=== PATIENT | female | born 1985 | race Caucasian/White ===

== ENCOUNTER 2018-05-18 07:54 | Emergency (ER) | payer BC ==
[~2018-05-18] VITALS: Ht 172.7 cm; Wt 93.0 kg
[2018-05-18 07:59] VITALS: BP 121/70; PULSE 90; RESP 16; TEMP 98.4; O2SAT 96
[2018-05-18] MEDS ORDERED: BUSP15TA PO (08:15)
[2018-05-18] MEDS ORDERED: PROCHLORPERAZINE INJ 10 MG/2 ML VIAL IV PUSH ONE (08:30)
[2018-05-18] MEDS ORDERED: diphenhydrAMINE HCL 50 MG/ML VIAL IV PUSH ONE (08:30)
--- NOTE | 2018-05-18 08:50 | PD ---
HPI . Headache Chief Complaint: Headache Time Seen by Provider: 08:27 Travel History International Travel<30 days: No Contact w/Intl Traveler<30days: No Traveled to known affect area: No History of Present Illness HPI Patient presents complaining with headache and pain all over. Onset was yesterday. Associated symptoms include nausea and dizziness. Symptoms were unrelieved by a dose of ibuprofen yesterday. Her pain is rated 7/10. No modifying factors. She reports associated nasal congestion. Otherwise, her review of systems is negative except as previously mentioned. [facility] Past Medical History Anxiety: Yes Diminished Hearing: No Headaches: Yes Immunizations Current: Yes Influenza Vaccination: No ?: Not LMP: NOW Tubal Ligation: Yes Social History Alcohol Use: No Tobacco Use: No (FORMER) Substance Use: No Allergies-Medications (Allergen,Severity, Reaction): Coded Allergies: No Known Allergies (Unverified , 05/18/18) Reported Meds & Prescriptions Reported Meds & Active Scripts Active Reported Buspirone (Buspirone HCl) 15 Mg Tab 15 Mg PO BID PRN Review of Systems Except as stated in HPI: all other systems reviewed are Neg General / Constitutional: No: Fever, Chills Eyes: No: Drainage, Redness HENT: Positive: Headaches, Congestion, No: Sore Throat Respiratory: No: Cough, Shortness of Breath Gastrointestinal: Positive: Nausea, No: Diarrhea, Abdominal Pain Genitourinary: No: Urgency, Frequency, Dysuria Neurologic: Positive: Dizziness Physical Exam Narrative GENERAL: Awake and alert and in no acute distress. SKIN: warm/dry. HEAD: Normocephalic. Atraumatic. Palpation of her scalp "feels good." EYES: Pupils equal and round. Extraocular movements are intact. ENT: Mucous membranes pink and moist. NECK: Supple. Full range of motion without pain. No adenopathy. CARDIOVASCULAR: Regular rate and rhythm. Heart sounds are normal. RESPIRATORY: No accessory muscle use. Clear to auscultation. Breath sounds equal bilaterally. GASTROINTESTINAL: Abdomen soft. Nontender. Bowel sounds present. Nondistended. MUSCULOSKELETAL: No obvious deformities. Normal muscle tone. NEUROLOGICAL: Awake and alert. No obvious cranial nerve deficits. Motor grossly within normal limits. Normal speech. PSYCHIATRIC: Appropriate mood and affect; insight and judgment normal. Data Data Last Documented VS Vital Signs Date Time Temp Pulse Resp B/P (MAP) Pulse Ox O2 Delivery O2 Flow Rate FiO2 05/18/18 08:08 16 05/18/18 07:59 98.4 90 121/70 (87) 96 Orders Orders ^ Saline Lock (05/18/18 08:28) Diphenhydramine Inj (Benadryl Inj) (05/18/18 08:30) Prochlorperazine Inj (Compazine Inj) (05/18/18 08:30) Complete Blood Count With Diff (05/18/18 08:45) Basic Metabolic Panel (Bmp) (05/18/18 08:45) Lactic Acid (05/18/18 08:45) Labs Laboratory Tests Test 05/18/18 08:55 05/18/18 09:16 White Blood Count 5.9 TH/MM3 Red Blood Count 4.64 MIL/MM3 Hemoglobin 13.5 GM/DL Hematocrit 39.3 % Mean Corpuscular Volume 84.5 FL Mean Corpuscular Hemoglobin 29.0 PG Mean Corpuscular Hemoglobin Concent 34.3 % Red Cell Distribution Width 12.8 % Platelet Count 170 TH/MM3 Mean Platelet Volume 8.6 FL Neutrophils (%) (Auto) 86.6 % Lymphocytes (%) (Auto) 5.0 % Monocytes (%) (Auto) 5.1 % Eosinophils (%) (Auto) 2.6 % Basophils (%) (Auto) 0.7 % Neutrophils # (Auto) 5.1 TH/MM3 Lymphocytes # (Auto) 0.3 TH/MM3 Monocytes # (Auto) 0.3 TH/MM3 Eosinophils # (Auto) 0.2 TH/MM3 Basophils # (Auto) 0.0 TH/MM3 CBC Comment DIFF FINAL Differential Comment Blood Urea Nitrogen 10 MG/DL Creatinine 0.86 MG/DL Random Glucose 89 MG/DL Calcium Level 8.8 MG/DL Sodium Level 138 MEQ/L Potassium Level 3.8 MEQ/L Chloride Level 104 MEQ/L Carbon Dioxide Level 26.2 MEQ/L Anion Gap 8 MEQ/L Estimat Glomerular Filtration Rate 76 ML/MIN Lactic Acid Level 0.7 mmol/L [facility] Medical Decision Making Medical Screen Exam Complete: Yes Emergency Medical Condition: Yes Differential Diagnosis Differential diagnosis of headache includes but is not limited to migraine, muscle contraction headache, brain tumor, brain bleed Narrative Course This patient presents with a chief complaint of headache associated with nausea , dizziness and nasal congestion. She is also complaining with pain all over ( myalgias). I will treat her headache with IV Compazine and Benadryl. I am ordering some baseline labs including a lactic acid because of her complaint of headache and diffuse myalgias. I have a low index of suspicion for meningitis and will not further pursue that diagnosis if her laboratory results are normal. CBC & BMP Diagram 05/18/18 08:55 Calcium Level 8.8 LA 0.6 She is now asleep. The history, exam, diagnostic testing, and current condition do not suggest any significant pathology to warrant further testing, continued ED treatment, admission, or surgical evaluation at this point. No EMC was found. The patient 's condition is stable and appropriate for discharge. Diagnosis Primary Impression: Headache Qualified Codes: G44.209 - Tension-type headache, unspecified, not intractable Additional Impression: Myalgia Patient Instructions: Acute Headache (DC), General Instructions Disposition: 01 DISCHARGE HOME Condition: Stable Kaylin Connelly MD May 18, 2018 08:50
[2018-05-18 09:04] LABS: AUTOMATED NEUTROPHIL # 5.1 TH/MM3 (1.8-7.7); BASOPHIL % 0.7 % (0.0-2.0); EOSINOPHIL # 0.2 TH/MM3 (0-0.4); EOSINOPHIL % 2.6 % (0.0-4.0); HEMATOCRIT 39.3 % (35.0-46.0); HEMOGLOBIN 13.5 GM/DL (11.6-15.3); LYMPHOCYTE # 0.3 TH/MM3 (1.0-4.8); MEAN CELL VOLUME 84.5 FL (80.0-100.0); MEAN CORPUSCULAR HGB CONC 34.3 % (32.0-36.0); MEAN PLATELET VOLUME 8.6 FL (7.0-11.0); MONO % 5.1 % (0.0-8.0); MONOCYTE # 0.3 TH/MM3 (0-0.9); NEUT % 86.6 % (16.0-70.0); PLATELET COUNT 170 TH/MM3 (150-450); RED BLOOD COUNT 4.64 MIL/MM3 (4.00-5.30); RED CELL DISTRIBUTION WIDTH 12.8 % (11.6-17.2); WHITE BLOOD COUNT 5.9 TH/MM3 (4.0-11.0)
[2018-05-18 09:13] LABS: CALCIUM 8.8 MG/DL (8.5-10.1)
[2018-05-18 09:14] LABS: BICARBONATE 26.2 MEQ/L (21.0-32.0)
[2018-05-18 09:17] LABS: CREATININE 0.86 MG/DL (0.50-1.00)
== END 2018-05-18 11:05 | disposition home or self-care (01) ==
LOC: PHED 07:54
DX: G44.209 Tension-type headache, unspecified, not intractable (principal); M79.1 Myalgia
CPT/HCPCS: 80048; 83605; 85025; 96374; 96375; 99284; J0780; J1200